=== PATIENT | female | born 1985 | race Caucasian/White ===

== ENCOUNTER 2021-06-13 06:25 | Inpatient (IN) | payer OTHER ==
[~2021-06-13] VITALS: Ht 165.1 cm; Wt 56.7 kg
--- NOTE | 2021-06-13 06:44 | NUR ---
AMY FROM A HALFWAY. TO ER BED 1. AAOX4. NOT IN RESP DISTRESS. BROUGHT IN FOR ABDOMINAL PAIN X 10 DAYS. 10/14 SHARP. ENDORESES VOMMITING WHENEVER SHE TRIES TO EAT OR DRINK. PT IS UNABLE TO KEEP FOOD DOWN. AWAITING MD FOR EVAL.
--- NOTE | 2021-06-13 06:49 | NUR ---
IV LINE ESTABLISHED, RAC 22G
[2021-06-13] MEDS ORDERED: ONDANSETRON HCL/PF 4 MG/2 ML VIAL ONE (06:58)
[2021-06-13] MEDS ORDERED: IV NS 0.9% 1,000 ML BAG IV ONE ×2 (07:00→09:30)
[2021-06-13] MEDS ORDERED: ONDANSETRON HCL/PF 4 MG/2 ML VIAL IVP ONE (07:00)
--- NOTE | 2021-06-13 07:29 | NUR ---
asked pt if she had taken any drugs recently prescription or other pt stated " i did heroin this morning."
--- NOTE | 2021-06-13 08:33 | NUR ---
CALLED LAB FOR DRAW.
--- NOTE | 2021-06-13 08:36 | NUR ---
MID LINE NURSE ETA 30 MINS PER NURSING SUP.
--- NOTE | 2021-06-13 08:46 | NUR ---
blood draw completed by lab, specimens in to analyze
[2021-06-13 08:58] LABS: BASOPHILS # (AUTO) 0.1 K/uL (0.0-0.2); BASOPHILS % (AUTO) 0.4 % (0.0-2.0); HEMATOCRIT 34 % (33-45); HEMOGLOBIN 8.4 g/dL (11.5-14.8); LYMPHOCYTES # (AUTO) 2.5 K/uL (0.8-4.8); MEAN CORPUSCULAR HGB CONC 25 g/dl (31.0-36.0); MEAN CORPUSCULAR VOLUME 49 fL (82-100); MONOCYTES # (AUTO) 2.1 K/uL (0.1-1.30); MONOCYTES % (AUTO) 6.7 % (2.0-12.0); NEUTROPHILS # (AUTO) 26.6 K/uL (1.8-8.9); NEUTROPHILS % (AUTO) 84.9 % (43.0-81.0); RED BLOOD CELL COUNT(AUTO) 6.92 MIL/uL (4.0-5.2)
--- NOTE | 2021-06-13 09:09 | NUR ---
LAB CALLED WHITE COUNT 31 PLATELET COUNT 1010 MD AWAD MADE AWARE.
[2021-06-13 09:10] LABS: PLATELET COUNT (AUTO) 1010 K/uL (150-450); WHITE BLOOD COUNT (AUTO) 31.3 K/uL (4.3-11.0)
[2021-06-13 09:12] LABS: ALBUMIN 3.5 g/dL (3.4-5.0); BILIRUBIN,DIRECT 0.4 mg/dL (0.0-0.2); CALCIUM, SERUM 9.1 mg/dL (8.5-10.1); CREATININE 7.3 mg/dL (0.6-1.3); TOTAL PROTEIN, SERUM 9.5 g/dL (6.4-8.2)
[2021-06-13 09:29] LABS: POTASSIUM 6.2 mmol/L (3.5-5.1)
--- NOTE | 2021-06-13 09:34 | NUR ---
PANKAJ [phone]
--- NOTE | 2021-06-13 09:38 | NUR ---
CALL [facility] DR. PEDRO [phone]
[2021-06-13] MEDS ORDERED: DIATR MEGLU/DIATRIZOATE SODIUM 30 ML BOTTLE (GASTROGRAPHIN) ONE (09:43)
--- NOTE | 2021-06-13 09:50 | NUR ---
CALLED NEPHORLOGY [phone] SADDLE [address] SIDE WIRE STITCHER IS DR. SHULTZ
[2021-06-13 09:53] LABS: ABG BASE EXCESS -13.2 mmol/L; ABG PCO2 25.5 mmHg (35.0-45.0); ABG PO2 92.1 mmHg (75.0-100.0); COHb 1.9 % (0.5-1.5); MetHb 0.3 % (0.0-1.5); O2Hb 93.7 % (94.0-97.0); SITE, ABG Right Radial; VENT MODE, BG ROOM AIR
--- NOTE | 2021-06-13 10:06 | NUR ---
LAB CALLED ABAD 3.2 NOTIFIED.
[2021-06-13 10:08] LABS: ACETAMINOPHEN < 0 ug/ml (10-30)
[2021-06-13] MEDS ORDERED: MORPHINE SULFATE INJ 2 MG/ML DISP.SYRIN IV PRN (10:30)
[2021-06-13] MEDS ORDERED: ACETAMINOPHEN 325 MG TABLET PO PRN (10:30)
[2021-06-13] MEDS ORDERED: MAG HYDROX/AL HYDROX/SIMETH 30 ML UDC PO PRN (10:30)
[2021-06-13] MEDS ORDERED: NOREPINEPHRINE 8 MG in IV NS 0.9% 242 ML IV PRN (10:30)
[2021-06-13] MEDS ORDERED: MAGNESIUM HYDROXIDE 30 ML UDC PO PRN (10:30)
[2021-06-13] MEDS ORDERED: Z GUARD REMEDY 4 OZ OINT TP PRN (10:30)
[2021-06-13] MEDS ORDERED: LORAZEPAM INJ 2 MG/ML VIAL IV PRN (10:30)
--- NOTE | 2021-06-13 10:58 | NUR ---
DR. HERNANDEZ SPEAKING WITH DR. AWAD.
[2021-06-13 11:11] LABS: BILIRUBIN,URINE SMALL (NEGATIVE); COLOR,URINE YELLOW (YELLOW); LEUKOCYTE ESTERASE ,URINE NEGATIVE (NEGATIVE); NITRITE, URINE NEGATIVE (NEGATIVE); PROTEIN,URINE 100 mg/dl (NEGATIVE); UGLUCOSE NEGATIVE (NEGATIVE); UROBILINOGEN,URINE 0.2 EU/dL (0.2)
[2021-06-13] MEDS: PANTOPRAZOLE 40 MG VIAL IV SCH (11:12)
[2021-06-13] MEDS: PIPERACILLIN /TAZOBACTAM 2.25 G in IV D5W 50 ML IV SCH ×3 (11:12→21:00)
[2021-06-13] MEDS: Sodium Bicarbonate 100 MEQ in IV 1/2NS 1000 ML 1,000 ML IV SCH ×2 (11:14→19:00)
[2021-06-13] MEDS ORDERED: SODIUM BICARBONATE SYR 50 MEQ/50 ML DISP.SYRIN ONE (11:18)
[2021-06-13] MEDS ORDERED: PIPERACILLIN /TAZOBACTAM 3.375 G VIAL IV ONE (11:18)
--- NOTE | 2021-06-13 11:19 | NUR ---
CALLED [facility] RHONDA [phone] AT [facility] WILL FAX OVER CLINICALS TO [phone]
--- NOTE | 2021-06-13 11:28 | NUR ---
THE ZOSYN AND THE BI- CARB ORDER WERE NOT GIVEN AT THIS TIME - AWAITING FOR THE VERIFIED APPROVAL, IT IS UNVERIFIED AT THIS TIME.
[2021-06-13 11:31] LABS: RBC,URINE 0-2 /HPF (0-2)
[2021-06-13 11:32] LABS: BACTERIA,URINE 3+ /HPF (None Seen)
--- NOTE | 2021-06-13 11:55 | NUR ---
PATIENT REFUSED NGT ORDERED X3. EXPLAINED RISK AND BENEFITS. PT VERBALIZED UNDERSTANDING STILL REFUSED. MD AWARE.
[2021-06-13 13:16] LABS: LYMPHOCYTES % (MANUAL) 4 % (16-48); MONOCYTES % (MANUAL) 6 % (0-11.0); NEUTROPHILS % (MANUAL) 90 (42-76)
[2021-06-13 14:17] LABS: CREATININE 4.9 mg/dL (0.6-1.3); POTASSIUM 4.8 mmol/L (3.5-5.1)
[2021-06-13 14:30] LABS: CALCIUM, SERUM 5.8 mg/dL (8.5-10.1)
[2021-06-13] MEDS ORDERED: VANCOMYCIN 1.25 GM in IV D5W 250 ML IV ONE (15:00)
--- NOTE | 2021-06-13 15:23 | NUR ---
CRITICAL LAB PROCALCITONIN = 23.03 , NEPROLOGIST SPECIALIST CAME TO SEE PT AND HELP TO EVALUATE PT FOR BEST PLAN
[2021-06-13] MEDS ORDERED: VANCOMYCIN 0.75 GM in IV D5W 250 ML IV SCH (15:30)
--- NOTE | 2021-06-13 16:06 | NUR ---
PT RECEIVED EVAL FROM NEUPROLOGIST, IV INTACT, F/C INTACT, REFUSED NG TUBE WILL ATTEMPT AGAIN, SLEEPING AT THIS TIME
--- NOTE | 2021-06-13 16:31 | NUR ---
ATIVAN GIVEN PER ORDER PRN 1630 PM
--- NOTE | 2021-06-13 16:58 | NUR ---
RECEIVED CALL FROM JAYDON OF [facility]. THEY STILL DONT HAVE BEDS AVAILABLE. SHE IS REQUESTING IF WE CAN MOVE PATIENT SOMEWHERE ELSE.
--- NOTE | 2021-06-13 20:30 | NUR ---
PATIENT REFUSED NGT ORDERED X2. EXPLAINED RISK AND BENEFITS. PT VERBALIZED UNDERSTANDING. MD NOTIFIED AND AWARE
--- NOTE | 2021-06-13 22:48 | NUR ---
ADMITTING FOLLOWING UP WITH [facility] DATA ENTRY REPRESENTATIVE FOR UPDATES REGARDING TRANSFER.
--- NOTE | 2021-06-13 23:20 | NUR ---
Spoke to case operator Marlen ([facility]), recommended [facility] - Transfer Center to be called in regards to refering patient to hospital for Bariatric Case for small bowel obstruction.
[2021-06-13 23:25] LABS: CREATININE 6.1 mg/dL (0.6-1.3)
[2021-06-13 23:36] LABS: POTASSIUM 6.3 mmol/L (3.5-5.1)
--- NOTE | 2021-06-13 23:36 | NUR ---
CALLED [facility] TO REQUEST A BED. MESSAGE LEFT WILL CALL BACK AGAIN
--- NOTE | 2021-06-13 23:36 | NUR ---
CRITICAL LABS SODIUM 120 POTASSIUM 6.3 BUN 120
[2021-06-14] MEDS ORDERED: PIPERACILLIN /TAZOBACTAM 3.375 G VIAL IV ONE (00:01)
[2021-06-14] MEDS ORDERED: Calcium Gluconate 0.465 MEQ/ML VIAL IV ONE (00:45)
--- NOTE | 2021-06-14 00:50 | NUR ---
PER MD MIKE JOSE BICARB IVF AND START NS 1 LITER.
[2021-06-14 00:59] LABS: ABG BASE EXCESS -9.6 mmol/L; ABG PCO2 23.2 mmHg (35.0-45.0); ABG PH 7.402 (7.350-7.450); ABG PO2 102.7 mmHg (75.0-100.0); COHb 2.2 % (0.5-1.5); MetHb 0.3 % (0.0-1.5); O2Hb 95.1 % (94.0-97.0); SITE, ABG Left Radial; VENT MODE, BG ROOM AIR
[2021-06-14] MEDS ORDERED: SODIUM POLYSTYRENE SULFONATE 15 G/60 ML BOTTLE PO ONE (01:00)
[2021-06-14] MEDS ORDERED: Calcium Gluconate 1GM/10ML 4.65 MEQ in IV D5W 50 ML IV ONE (01:00)
[2021-06-14] MEDS ORDERED: ALBUTEROL FS 2.5 MG/3 ML VIAL.NEB NEB ONE (01:00)
[2021-06-14] MEDS ORDERED: FUROSEMIDE 40 MG/4 ML VIAL IV ONE (01:00)
[2021-06-14] MEDS ORDERED: IV NS 0.9% 1,000 ML BAG IV ONE ×2 (01:00→04:30)
--- NOTE | 2021-06-14 01:02 | NUR ---
NS started per MD, lasix given. B/P stable.
[2021-06-14] MEDS ORDERED: FUROSEMIDE 40 MG/4 ML VIAL ONE (01:06)
[2021-06-14] MEDS ORDERED: SODIUM POLYSTYRENE SULFONATE 15 G/60 ML BOTTLE ONE ×2 (01:07→01:18)
[2021-06-14 01:20] LABS: MAGNESIUM 2.3 mg/dL (1.8-2.4)
--- NOTE | 2021-06-14 01:25 | NUR ---
[facility] TALKING TO DR. WHEELER OVER THE PHONE
--- NOTE | 2021-06-14 01:30 | NUR ---
SPOKE WITH MOHINDER CHOE [facility] TRANSFER [facility] AND OPEN A CASE FOR A HIGHER LEVEL OF CARE FOR A SMALL BOWEL OBTRUCTION REQUIRING SURGERY. WILL CALL BACK ONCE CLINICALS ARE REVIEWED
--- NOTE | 2021-06-14 01:30 | NUR ---
DEBBIE, ELECTRIC SPOT WELDER SHARED INFORMATION THAT THE PATIENT'S BARIATRIC PROCEDURE WAS DONE AT [facility] IN [place] BY DR. ANDRADE
[2021-06-14] MEDS ORDERED: ALBUTEROL FS 2.5 MG/3 ML VIAL.NEB ONE (01:38)
--- NOTE | 2021-06-14 01:40 | NUR ---
RT paged for breathing treatment.
--- NOTE | 2021-06-14 01:50 | NUR ---
CLINICALS FAXED TO [facility]
--- NOTE | 2021-06-14 01:52 | NUR ---
ELIZONDO CATH 650ML
--- NOTE | 2021-06-14 01:58 | NUR ---
Labs collected and sent
[2021-06-14 02:00] LABS: BASOPHILS % (AUTO) 0.1 % (0.0-2.0); HEMATOCRIT 23 % (33-45); LYMPHOCYTES # (AUTO) 1.1 K/uL (0.8-4.8); MEAN CORPUSCULAR HGB CONC 26 g/dl (31.0-36.0); MEAN CORPUSCULAR VOLUME 47 fL (82-100); MONOCYTES # (AUTO) 1.5 K/uL (0.1-1.30); MONOCYTES % (AUTO) 8.2 % (2.0-12.0); NEUTROPHILS # (AUTO) 15.3 K/uL (1.8-8.9); NEUTROPHILS % (AUTO) 85.7 % (43.0-81.0); PLATELET COUNT (AUTO) 621 K/uL (150-450); RED BLOOD CELL COUNT(AUTO) 4.87 MIL/uL (4.0-5.2); WHITE BLOOD COUNT (AUTO) 17.9 K/uL (4.3-11.0)
[2021-06-14 02:16] LABS: ALBUMIN 2.5 g/dL (3.4-5.0); BILIRUBIN,DIRECT 0.4 mg/dL (0.0-0.2); CALCIUM, SERUM 7.8 mg/dL (8.5-10.1); CREATININE 5.6 mg/dL (0.6-1.3); POTASSIUM 5.5 mmol/L (3.5-5.1)
[2021-06-14 02:28] LABS: HEMOGLOBIN 5.9 g/dL (11.5-14.8)
--- NOTE | 2021-06-14 02:29 | NUR ---
HEMOGLOBIN 5.9
--- NOTE | 2021-06-14 02:46 | NUR ---
urine collected and sent.
[2021-06-14] MEDS: Sodium Bicarbonate 100 MEQ in IV 1/2NS 1000 ML 1,000 ML IV SCH (03:00)
[2021-06-14] MEDS: PIPERACILLIN /TAZOBACTAM 2.25 G in IV D5W 50 ML IV SCH ×5 (05:00→17:00)
--- NOTE | 2021-06-14 05:00 | NUR ---
BLODD TRANSFUSION STARTED V/S STABLE
[2021-06-14 05:10] LABS: BASOPHILS % (AUTO) 0.3 % (0.0-2.0); HEMATOCRIT 24 % (33-45); LYMPHOCYTES # (AUTO) 2.5 K/uL (0.8-4.8); LYMPHOCYTES % (AUTO) 13.6 % (20.0-44.0); MEAN CORPUSCULAR HGB CONC 25 g/dl (31.0-36.0); MEAN CORPUSCULAR VOLUME 47 fL (82-100); MONOCYTES # (AUTO) 1.4 K/uL (0.1-1.30); MONOCYTES % (AUTO) 7.6 % (2.0-12.0); NEUTROPHILS # (AUTO) 14.3 K/uL (1.8-8.9); NEUTROPHILS % (AUTO) 78.5 % (43.0-81.0); PLATELET COUNT (AUTO) 600 K/uL (150-450); RED BLOOD CELL COUNT(AUTO) 5.05 MIL/uL (4.0-5.2); WHITE BLOOD COUNT (AUTO) 18.2 K/uL (4.3-11.0)
--- NOTE | 2021-06-14 05:10 | NUR ---
0500 zosyn not administered pt will start Blood transfusion
--- NOTE | 2021-06-14 05:20 | NUR ---
FOLLOWED UP WITH [facility] REGARDING TRANSFER. NO ANSWER, MESSAGE LEFT.
--- NOTE | 2021-06-14 05:23 | NUR ---
FOLLOWED UP WITH [facility] REGARDING TRANSFER. PT'S CASE IS STILL UNDER REVIEW. WILL CALL BACK IF CASE IS ACCEPTED.
[2021-06-14] MEDS ORDERED: ONDANSETRON HCL/PF 4 MG/2 ML VIAL ONE ×2 (05:24→14:41)
[2021-06-14 05:28] LABS: CALCIUM, SERUM 8.2 mg/dL (8.5-10.1); CREATININE 4.9 mg/dL (0.6-1.3); MAGNESIUM 2.1 mg/dL (1.8-2.4); PHOSPHORUS 7.7 mg/dL (2.5-4.9); POTASSIUM 4.6 mmol/L (3.5-5.1)
--- NOTE | 2021-06-14 05:40 | NUR ---
PT VOMITED 100 ML OF CLEAR EMESIS MD AWARE ZOFRAN GIVEN
[2021-06-14 05:48] LABS: THYROID STIMULATING HORMONE 0.889 uIU/mL (0.358-3.74)
--- NOTE | 2021-06-14 05:50 | NUR ---
SPOKE WITH CARMELLA FROM [facility] TRANSFER. CURRENTLY NO BED. CASE IS NOT DECLINED, JUSTR AWAITING BED AVAILABILITY IN AM.
--- NOTE | 2021-06-14 06:00 | NUR ---
CALLED TO FOLLOW UP WITH [employer] [facility]. SPOKE WITH MARLON COORDINATOR AND WILL PAGED [employer] TO CALL BACK
[2021-06-14] MEDS ORDERED: MORPHINE SULFATE INJ 2 MG/ML DISP.SYRIN ONE ×4 (06:12→20:22)
--- NOTE | 2021-06-14 06:25 | NUR ---
Blood transusion completed, no adverse reaction v/s stable
--- NOTE | 2021-06-14 06:33 | NUR ---
DAIJA FROM [facility] CALLED BACK TO INFORM THAT THE PATIENT IS NOT ACCEPTED, DECLINED THE CASE
--- NOTE | 2021-06-14 06:34 | NUR ---
SPOKE WITH JAMES FROM TRANSFER CENTER, CASE IS STILL IN REVIEW. WILL CALL BACK IF PATIENT IS ACCEPTED.
--- NOTE | 2021-06-14 06:40 | NUR ---
NGT INSERTED TO LEFT NARE PT TOLERATED WELL. ON INTERMITTENT LOW SUCTION.
[2021-06-14] MEDS: MORPHINE SULFATE INJ 2 MG/ML DISP.SYRIN IV PRN ×4 (06:41→20:29)
[2021-06-14] MEDS: ONDANSETRON HCL/PF 4 MG/2 ML VIAL IVP PRN (06:43)
[2021-06-14 07:23] LABS: LYMPHOCYTES % (MANUAL) 3 % (16-48); MONOCYTES % (MANUAL) 4 % (0-11.0); NEUTROPHILS % (MANUAL) 93 (42-76)
--- NOTE | 2021-06-14 07:43 | NUR ---
REPORT GIVEN TO ANTONIO COPPOLA FOR KALE
[2021-06-14] MEDS: IV D5/0.45 NACL 1,000 ML IV PRN ×2 (08:10→22:04)
[2021-06-14] MEDS ORDERED: IV 1/2NS 1000 ML 1,000 ML IV ONE (08:30)
[2021-06-14] MEDS: PANTOPRAZOLE 40 MG VIAL IV SCH (09:00)
--- NOTE | 2021-06-14 10:15 | NUR ---
NG TUBE IN PLACED CONNECTED TO LOW INTERMITTENT SUCTION
[2021-06-14] MEDS ORDERED: CLONIDINE HCL 0.3 MG/24H PTWK 1 EA PATCH TD SCH (11:00)
--- NOTE | 2021-06-14 12:38 | NUR ---
PT IS ACEPTED AT [facility] PER VALERIA PEREZ. HOWEVER, STILL AWAITING FOR BED FROM HOSPITAL DISCHARGE. WILL CALL BACK ONCE BED IS AVAILABLE. AND ALSO CALL [phone] TO FOLLOW UP BED STATUS
[2021-06-14 13:05] LABS: CALCIUM, SERUM 8.5 mg/dL (8.5-10.1); CREATININE 4.3 mg/dL (0.6-1.3); POTASSIUM 4.4 mmol/L (3.5-5.1)
--- NOTE | 2021-06-14 17:30 | NUR ---
CALLED [facility] AT [phone]. PER ALYSSA, ICU IS STILL SATURATED AND NO UPDATE YET RE: BED AVAILABILITY.
--- NOTE | 2021-06-14 17:45 | NUR ---
NG TUBE INSERTED, POSITIVE GASTRIC RESIDUAL RETURN
--- NOTE | 2021-06-14 18:00 | NUR ---
DIRECTOR OF SOCIAL WORK AT BEDSIDE FOR POST NG TUBE INSERTION
[2021-06-14 19:18] LABS: CALCIUM, SERUM 8.1 mg/dL (8.5-10.1); CREATININE 3.3 mg/dL (0.6-1.3)
--- NOTE | 2021-06-14 19:19 | NUR ---
LAB CALLED BUN [address] AWAD INFORMED.
[2021-06-14 19:56] LABS: BASOPHILS % (AUTO) 0.1 % (0.0-2.0); EOSINOPHILS % (AUTO) 0.1 % (0.0-6.0); HEMATOCRIT 32 % (33-45); HEMOGLOBIN 8.8 g/dL (11.5-14.8); LYMPHOCYTES # (AUTO) 0.5 K/uL (0.8-4.8); LYMPHOCYTES % (AUTO) 2.5 % (20.0-44.0); MEAN CORPUSCULAR HGB CONC 28 g/dl (31.0-36.0); MEAN CORPUSCULAR VOLUME 55 fL (82-100); MONOCYTES # (AUTO) 1.6 K/uL (0.1-1.30); MONOCYTES % (AUTO) 8.5 % (2.0-12.0); NEUTROPHILS # (AUTO) 16.6 K/uL (1.8-8.9); NEUTROPHILS % (AUTO) 88.8 % (43.0-81.0); PLATELET COUNT (AUTO) 627 K/uL (150-450); RED BLOOD CELL COUNT(AUTO) 5.75 MIL/uL (4.0-5.2); WHITE BLOOD COUNT (AUTO) 18.8 K/uL (4.3-11.0)
--- NOTE | 2021-06-14 20:15 | NUR ---
PT IS RESTING CONFORTABLY IN BED BUT STATES SHE HAS GENERALIZED BODY PAIN 10/10 ON P/S. WILL PROVIDE PRN PAIN MEDS AND MAKE MD AWARE. WILL CONTINUE TO MONITOR
--- NOTE | 2021-06-14 20:15 | NUR ---
RECEIVED REPORT FROM COMPANY MINER BLASTING FOR KALE
[2021-06-14 20:32] LABS: LYMPHOCYTES % (MANUAL) 4 % (16-48); MONOCYTES % (MANUAL) 10 % (0-11.0); NEUTROPHILS % (MANUAL) 86 (42-76)
[2021-06-14] MEDS ORDERED: IV NS 0.9% 1,000 ML IV ONE (22:30)
--- NOTE | 2021-06-15 02:35 | NUR ---
PT IS NOW AWAKE AND STATES SHE HAS GENERALIZED BODY PAIN 10/10 ON P/S, WILL PROVIDE PRN PAIN MEDS AND MAKE MD AWARE.
[2021-06-15] MEDS: MORPHINE SULFATE INJ 2 MG/ML DISP.SYRIN IV PRN ×5 (02:38→16:35)
[2021-06-15] MEDS ORDERED: MORPHINE SULFATE INJ 2 MG/ML DISP.SYRIN ONE ×4 (02:39→15:09)
[2021-06-15] MEDS ORDERED: VANCOMYCIN 0.75 GM in IV D5W 250 ML IV SCH ×2 (03:00→04:00)
[2021-06-15 05:14] LABS: BASOPHILS # (AUTO) 0.1 K/uL (0.0-0.2); BASOPHILS % (AUTO) 0.7 % (0.0-2.0); EOSINOPHILS % (AUTO) 0.1 % (0.0-6.0); HEMATOCRIT 31 % (33-45); HEMOGLOBIN 8.7 g/dL (11.5-14.8); LYMPHOCYTES # (AUTO) 0.8 K/uL (0.8-4.8); LYMPHOCYTES % (AUTO) 4.7 % (20.0-44.0); MEAN CORPUSCULAR HGB CONC 28 g/dl (31.0-36.0); MEAN CORPUSCULAR VOLUME 55 fL (82-100); MONOCYTES # (AUTO) 1.3 K/uL (0.1-1.30); MONOCYTES % (AUTO) 7.4 % (2.0-12.0); NEUTROPHILS # (AUTO) 15.4 K/uL (1.8-8.9); NEUTROPHILS % (AUTO) 87.1 % (43.0-81.0); PLATELET COUNT (AUTO) 630 K/uL (150-450); RED BLOOD CELL COUNT(AUTO) 5.58 MIL/uL (4.0-5.2); WHITE BLOOD COUNT (AUTO) 17.6 K/uL (4.3-11.0)
[2021-06-15 05:32] LABS: CALCIUM, SERUM 8.3 mg/dL (8.5-10.1); CREATININE 2.2 mg/dL (0.6-1.3); POTASSIUM 3.8 mmol/L (3.5-5.1)
--- NOTE | 2021-06-15 05:36 | NUR ---
BUN 84
[2021-06-15] MEDS ORDERED: LORAZEPAM INJ 2 MG/ML VIAL ONE ×3 (05:47→15:16)
[2021-06-15] MEDS: LORAZEPAM INJ 2 MG/ML VIAL IV PRN ×3 (05:52→15:19)
[2021-06-15] MEDS: PIPERACILLIN /TAZOBACTAM 2.25 G in IV D5W 50 ML IV SCH ×5 (06:50→18:08)
--- NOTE | 2021-06-15 07:13 | NUR ---
Recived pt from Kalyn COPPOLA pt asleepy respiration spont on room air with NGT conected to low suction drainning clear pickish color abdomin soft none tender to touch
--- NOTE | 2021-06-15 07:24 | NUR ---
PATIENT WAS SEEN AND EVALUATED BY HOSPITALIST, SONIA ATKINSON AND DOWN GRADED TO MED SURG. CALLED PATRICIA AT [facility] AND MADE HER AWARE OF THE PATIENT STATUS. PLEASE CALL PATIENT PLACEMENT AT [phone] #2, #2 AND FOLLOW UP WITH SATHYA AFTER 10AM.
[2021-06-15] MEDS ORDERED: ONDANSETRON HCL/PF 4 MG/2 ML VIAL ONE ×2 (07:58→15:22)
[2021-06-15] MEDS: ONDANSETRON HCL/PF 4 MG/2 ML VIAL IVP PRN ×3 (08:01→15:26)
--- NOTE | 2021-06-15 08:22 | NUR ---
Restless on and off no c/o pain morphine given f/c out put 3000ml dark yellow color
[2021-06-15] MEDS ORDERED: PANTOPRAZOLE 40 MG VIAL ONE (09:01)
[2021-06-15] MEDS: PANTOPRAZOLE 40 MG VIAL IV SCH (09:06)
--- NOTE | 2021-06-15 09:28 | NUR ---
wating for room resting at this time no sob or distress
--- NOTE | 2021-06-15 10:36 | NUR ---
Asleepy no abdominale pain or n/v
--- NOTE | 2021-06-15 11:37 | NUR ---
STARTED abdomine saires
[2021-06-15] MEDS ORDERED: DIATR MEGLU/DIATRIZOATE SODIUM 120 ML BOTTLE (GASTROGRAPHIN) ONE (12:12)
--- NOTE | 2021-06-15 12:31 | NUR ---
resting and comfortable at this time
[2021-06-15] MEDS ORDERED: BARIUM SULFATE 98% 135 ML SUSP.RECON PO ONE (12:59)
--- NOTE | 2021-06-15 13:20 | NUR ---
contenue montring sleepy resless on and off keep pt comfortable all time
--- NOTE | 2021-06-15 14:11 | NUR ---
RADIOLOGY AT BEDSIDE
--- NOTE | 2021-06-15 14:28 | NUR ---
still on process abdomina saires abdomin soft jairon tender to touch
--- NOTE | 2021-06-15 15:25 | NUR ---
pt refused to contenue abdomina saires to be done avivan 1 mg ivp given pt pt responded to mediction and asleepy
--- NOTE | 2021-06-15 16:27 | NUR ---
asleepy no distress ngt intact clamped condition stable no change improving wating for room
--- NOTE | 2021-06-15 18:42 | NUR ---
ngt clamped still in porocess abdomina sarice no abdomiale pain no n/v ivf infused and patent vs stable wating for room
--- NOTE | 2021-06-15 19:28 | NUR ---
URINE OUTPUT 700ML HAND OFF TO WENCESLAO RN AT bed side
--- NOTE | 2021-06-15 19:38 | NUR ---
PT IS RESTING COMFORTABLY IN BED, SLEEPING BUT EASILY AROUSABLE. PER DAY SHIFT , KEEP NG TUBE OFF FROM SUCTION UNTIL XRAYS ARE COMPLETE. WILL CONTINUE TO MONITOR
--- NOTE | 2021-06-15 19:38 | NUR ---
RECEIVED REPORT FROM ANGELA COPPOLA FOR [facility]ALE
--- NOTE | 2021-06-15 23:23 | NUR ---
PT PULLED OUT NG TUBE, STATES "SHES DONE WITH ALL OF THIS". MADE AWARE
--- NOTE | 2021-06-16 00:01 | NUR ---
PT REFUSED REINSERTION OF NG TUBE, MADE AWARE
[2021-06-16] MEDS: PIPERACILLIN /TAZOBACTAM 2.25 G in IV D5W 50 ML IV SCH ×3 (01:00→12:59)
[2021-06-16] MEDS ORDERED: MORPHINE SULFATE INJ 2 MG/ML DISP.SYRIN ONE ×3 (04:40→13:11)
[2021-06-16] MEDS: MORPHINE SULFATE INJ 2 MG/ML DISP.SYRIN IV PRN (04:42)
--- NOTE | 2021-06-16 04:43 | NUR ---
PT C/O GEN BODY PAIN. ADMINISTERED MORPHINE 2MG IVP ORDERED. WILL REASSES
[2021-06-16 05:09] LABS: BASOPHILS # (AUTO) 0.1 K/uL (0.0-0.2); BASOPHILS % (AUTO) 0.4 % (0.0-2.0); HEMATOCRIT 29 % (33-45); HEMOGLOBIN 8.1 g/dL (11.5-14.8); LYMPHOCYTES # (AUTO) 0.6 K/uL (0.8-4.8); LYMPHOCYTES % (AUTO) 4.8 % (20.0-44.0); MEAN CORPUSCULAR HGB CONC 28 g/dl (31.0-36.0); MEAN CORPUSCULAR VOLUME 56 fL (82-100); MONOCYTES # (AUTO) 1.1 K/uL (0.1-1.30); NEUTROPHILS # (AUTO) 10.8 K/uL (1.8-8.9); NEUTROPHILS % (AUTO) 85.8 % (43.0-81.0); PLATELET COUNT (AUTO) 604 K/uL (150-450); RED BLOOD CELL COUNT(AUTO) 5.15 MIL/uL (4.0-5.2); WHITE BLOOD COUNT (AUTO) 12.6 K/uL (4.3-11.0)
[2021-06-16 05:23] LABS: CALCIUM, SERUM 8.1 mg/dL (8.5-10.1); CREATININE 1.2 mg/dL (0.6-1.3); POTASSIUM 3.2 mmol/L (3.5-5.1)
[2021-06-16] MEDS ORDERED: [UNRECOGNIZED DRUG - OTHER] IV ONE ×2 (07:00)
[2021-06-16] MEDS ORDERED: POTASSIUM CHLORIDE IV ONE ×2 (07:00)
[2021-06-16] MEDS ORDERED: DEXTROSE IV ONE ×2 (07:00)
[2021-06-16] MEDS ORDERED: NORMAL SALINE FLUSH 10 ML SYR ONE (07:58)
[2021-06-16] MEDS ORDERED: PANTOPRAZOLE 40 MG VIAL ONE (07:58)
[2021-06-16] MEDS ORDERED: MORPHINE SULFATE INJ 2 MG/ML DISP.SYRIN IV PRN (08:00)
[2021-06-16] MEDS: PANTOPRAZOLE 40 MG VIAL IV SCH (08:20)
[2021-06-16] MEDS ORDERED: ONDANSETRON HCL/PF 4 MG/2 ML VIAL ONE (08:49)
[2021-06-16] MEDS: ONDANSETRON HCL/PF 4 MG/2 ML VIAL IVP PRN (08:51)
[2021-06-16] MEDS ORDERED: POTASSIUM CL. PREMIX PERIPHER. 100 ML ONE (09:00)
[2021-06-16] MEDS: POTASSIUM CL. PREMIX PERIPHER. 50 ML IV SCH ×4 (09:12→13:30)
[2021-06-16] MEDS ORDERED: POTASSIUM CL. PREMIX PERIPHER. 50 ML ONE (11:00)
--- NOTE | 2021-06-16 14:44 | NUR ---
1300 CC EMPTIED FROM PT ELIZONDO CATHETER.
--- NOTE | 2021-06-16 15:13 | NUR ---
FOLLOWED UP WITH [facility] BED CONTROL [phone], STILL NO BED AVAILABILITY.
--- NOTE | 2021-06-16 18:11 | NUR ---
PT STATED THAT SHE WANTED TO LEAVE BECAUSE SHE WANTS WATER, PT WAS EXPLAINED THE RISKS OF LEAVING, PT SIGNED AGAINST MEDICAL ADVICE PAPERS.
--- NOTE | 2021-06-16 21:35 | NUR ---
Patient does not wish to proceed with medical care recommended by Dr. ROJAS. Patient given information related to possible complications, up to and including , which could occur as a result of leaving the hospital at this time. Patient verbalizes understanding of risks involved due to leaving against medical advice. Patient has signed AMA form. PT ambulatory with a steady gait. IV & FC removed. Catheter intact and site benign. Pressure and 4x4 applied to site. No bleeding noted.
[2021-06-17 00:08] VITALS: BP 116/55
[2021-06-17] MEDS ORDERED: ONDANSETRON HCL/PF 4 MG/2 ML VIAL ONE (01:59)
[2021-06-17] MEDS ORDERED: MORPHINE SULFATE INJ 2 MG/ML DISP.SYRIN ONE (01:59)
== END 2021-06-16 21:35 | disposition left against medical advice (07) | DRG 720 ==
LOC: ER 06:30 → ICU 06-14 00:51 → TRANSITION 06-14 05:23
PROVIDERS: ADMIT Nurse Practitioner Acute Care; ATTEND Student in an Organized Health Care Education/Training Program
PROC: 30233N1 Transfusion of Nonautologous Red Blood Cells into Peripheral Vein, Percutaneous Approach (ICD-10-PCS; principal; 2021-06-14)
PROC: 05H933Z Insertion of Infusion Device into Right Brachial Vein, Percutaneous Approach (ICD-10-PCS; 2021-06-14)
DX: A41.9 Sepsis, unspecified organism (principal); N17.0 Acute kidney failure with tubular necrosis; R65.21 Severe sepsis with septic shock; E43 Unspecified severe protein-calorie malnutrition; K56.609 Unspecified intestinal obstruction, unspecified as to partial versus complete obstruction; K55.9 Vascular disorder of intestine, unspecified; E87.2 Acidosis; R64 Cachexia; E87.1 Hypo-osmolality and hyponatremia; Z68.20 Body mass index [BMI] 20.0-20.9, adult; Z20.822 Contact with and (suspected) exposure to COVID-19; Z59.00 Homelessness unspecified; Z98.84 Bariatric surgery status; J98.11 Atelectasis; K31.9 Disease of stomach and duodenum, unspecified; F11.20 Opioid dependence, uncomplicated; D75.839 Thrombocytosis, unspecified; D64.9 Anemia, unspecified; I70.0 Atherosclerosis of aorta; E87.5 Hyperkalemia; E87.6 Hypokalemia
CPT/HCPCS: 36410; 36415; 36600; 71045-TC; 74018; 74250-TC; 76770-TC; 80048-TC; 80076-TC; 80202-TC; 81001; 82010-TC; 82803-TC; 83605-TC; 83690-TC; 83735-TC; 84100-TC; 84300-TC; 84443-TC; 84702-TC; 85025-TC; 86403-TC; 86803; 86850-TC; 87040-TC; 87070-TC; 87081-TC; 87086-TC; 87806; 93307-TC; A4216; C9113; C9803; G0378; J0610; J1940; J2060; J2270; J2405; J2543; J3370; J3480; J3490; J7030; J7040; J7050; J7060; P9016; Q9963

== ENCOUNTER 2021-06-17 00:02 | Inpatient (IN) | payer MEDICAID, OTHER ==
[~2021-06-17] VITALS: Ht 165.1 cm; Wt 56.7 kg
--- NOTE | 2021-06-17 00:35 | NUR ---
BIBRA 39 FROM [facility] C/O ABDOMINAL PAIN 12/14. PT AO X 3. DENIES SOB, ON RA, TOLERATING, VS TAKEN.
--- NOTE | 2021-06-17 00:54 | NUR ---
COMPOSITE TECHNICIAN AT BEDSIDE
--- NOTE | 2021-06-17 00:54 | NUR ---
PT UNABLE TO URINATE YET.
--- NOTE | 2021-06-17 01:30 | NUR ---
FOLLOWED UP WITH [facility] ABOUT BED AVAILABILITY. STILL AT [facility].
[2021-06-17 01:44] LABS: BASOPHILS # (AUTO) 0.1 K/uL (0.0-0.2); BASOPHILS % (AUTO) 0.4 % (0.0-2.0); EOSINOPHILS % (AUTO) 0.4 % (0.0-6.0); HEMATOCRIT 32 % (33-45); HEMOGLOBIN 8.9 g/dL (11.5-14.8); LYMPHOCYTES # (AUTO) 1.6 K/uL (0.8-4.8); LYMPHOCYTES % (AUTO) 12.3 % (20.0-44.0); MEAN CORPUSCULAR HGB CONC 28 g/dl (31.0-36.0); MEAN CORPUSCULAR VOLUME 57 fL (82-100); MONOCYTES # (AUTO) 0.8 K/uL (0.1-1.30); MONOCYTES % (AUTO) 6.1 % (2.0-12.0); NEUTROPHILS # (AUTO) 10.3 K/uL (1.8-8.9); NEUTROPHILS % (AUTO) 80.8 % (43.0-81.0); PLATELET COUNT (AUTO) 596 K/uL (150-450); WHITE BLOOD COUNT (AUTO) 12.8 K/uL (4.3-11.0)
[2021-06-17 01:58] LABS: CALCIUM, SERUM 8.3 mg/dL (8.5-10.1); CREATININE 0.9 mg/dL (0.6-1.3); POTASSIUM 3.5 mmol/L (3.5-5.1)
[2021-06-17] MEDS ORDERED: IV LR 1000 ML 1,000 ML IV ONE (02:00)
[2021-06-17] MEDS ORDERED: MORPHINE SULFATE INJ 2 MG/ML DISP.SYRIN IV ONE (02:00)
[2021-06-17] MEDS ORDERED: ONDANSETRON HCL/PF - ER 4 MG/2 ML VIAL IV ONE (02:00)
[2021-06-17 02:03] LABS: ALBUMIN 2.1 g/dL (3.4-5.0); BILIRUBIN,DIRECT 0.4 mg/dL (0.0-0.2); BILIRUBIN,TOTAL 1.3 mg/dL (0.2-1.0); TOTAL PROTEIN, SERUM 7.1 g/dL (6.4-8.2)
[2021-06-17 02:39] LABS: EOSINOPHILS % (MANUAL) 1 % (0-4); LYMPHOCYTES % (MANUAL) 4 % (16-48); MONOCYTES % (MANUAL) 7 % (0-11.0); NEUTROPHILS % (MANUAL) 88 (42-76)
--- NOTE | 2021-06-17 02:46 | NUR ---
COVID SWAB DONE, UA COLLECTED SENT TO LAB
[2021-06-17 02:57] LABS: BILIRUBIN,URINE NEGATIVE (NEGATIVE); COLOR,URINE DARK YELLOW (YELLOW); LEUKOCYTE ESTERASE ,URINE NEGATIVE (NEGATIVE); NITRITE, URINE NEGATIVE (NEGATIVE); PROTEIN,URINE 100 mg/dl (NEGATIVE); UGLUCOSE NEGATIVE (NEGATIVE); UROBILINOGEN,URINE 0.2 EU/dL (0.2)
[2021-06-17 03:09] LABS: BACTERIA,URINE Moderate /HPF (None Seen); RBC,URINE 21-50 /HPF (0-2); SQUAMOUS EPITHELIAL CELL,UR Few /HPF (None Seen)
[2021-06-17 03:10] LABS: URIC ACID CRYSTALS,URINE Moderate /HPF (None Seen); URINE AMORPHOUS URATE Few /HPF (None Seen)
--- NOTE | 2021-06-17 04:00 | NUR ---
pt sleeping comfortably. no signs of pain. vs stable
--- NOTE | 2021-06-17 07:26 | NUR ---
[facility] paged - via exchange
--- NOTE | 2021-06-17 08:12 | NUR ---
accepted by Graeme Norman MD - for ER OBS called rn case manager for HLOC
--- NOTE | 2021-06-17 08:16 | NUR ---
called case management - Zac COPPOLA is aware for HLOCT per Graeme Norman MD
[2021-06-17] MEDS ORDERED: ONDANSETRON HCL/PF 4 MG/2 ML VIAL IVP PRN (09:30)
[2021-06-17] MEDS ORDERED: Z GUARD REMEDY 4 OZ OINT TP PRN (09:30)
[2021-06-17] MEDS ORDERED: ACETAMINOPHEN 325 MG TABLET PO PRN (09:30)
[2021-06-17] MEDS ORDERED: MAG HYDROX/AL HYDROX/SIMETH 30 ML UDC PO PRN (09:30)
[2021-06-17] MEDS ORDERED: MAGNESIUM HYDROXIDE 30 ML UDC PO PRN (09:30)
[2021-06-17] MEDS ORDERED: ZOLPIDEM TARTRATE 5 MG TABLET PO PRN (09:30)
--- NOTE | 2021-06-17 09:52 | NUR ---
WAITING ADMIT OFFICE TO PLACE THE PATIENT IN TRANSITION. FOLLOW UP CALL TO ADMIT OFFICE IS DONE.
[2021-06-17] MEDS: IV NS 0.9% 1,000 ML IV SCH ×2 (10:45→19:42)
[2021-06-17] MEDS ORDERED: MORPHINE SULFATE INJ 2 MG/ML DISP.SYRIN ONE ×2 (11:17→15:29)
[2021-06-17] MEDS ORDERED: ONDANSETRON HCL/PF 4 MG/2 ML VIAL ONE (11:17)
[2021-06-17] MEDS: MORPHINE SULFATE INJ 2 MG/ML DISP.SYRIN IV PRN ×4 (11:24→23:41)
[2021-06-17] MEDS ORDERED: MORPHINE SULFATE INJ 2 MG/ML DISP.SYRIN IV SCH (13:00)
--- NOTE | 2021-06-17 15:31 | NUR ---
ROOM 320-1
--- NOTE | 2021-06-17 15:46 | NUR ---
REPORT GIVEN TO PRIYANK FOR KALE
--- NOTE | 2021-06-17 16:13 | NUR ---
PT TRANSPORT TO [facility] SURG FLOOR IN STABLE CONDITION.
--- NOTE | 2021-06-17 16:15 | NUR ---
Patient arrived via gurney around 1615pm from ER department. Patient AO X 4, able to make needs known, can follow simple commands, no apparent distress noted, breathing even and unlabored. Admitting hospitalist made aware of the patient's arrival. Patient admitting diagnosis small bowel obstruction. Patient has a nasogastric tube in her right nare connected to low intermittent suction draining yellowish output. Patient on NPO diet order, and kept on asking for apple juice, explained to patient that she cannot drink or anything for now, patient insisted and kept screaming for apple juice. Patient's vital signs within normal limits. Skin intact, warm to touch, no pallor or cyanosis noted, refused to have further skin assessment, patient noted to have scabs and open areas on her forearm and refused to have photos taken. "Go away, leave my skin alone, do not touch me", patient stated. Patient oriented with use of call lights, use of bed control, use of telephone and tv control, also introduces PAPER CARRIER and RN assigned for today, patient did not respond. All belongings written in the inventory list. All needs anticipated, kept clean and dry, call light left within reach, safety precautions in place, brakes locked, side rails up X 2, will monitor closely for any changes.
[2021-06-17 17:00] VITALS: BP 137/94
--- NOTE | 2021-06-17 19:30 | NUR ---
MS RN OPENING NOTES RECEIVED PATIENT LYING IN BED AWAKE. A/O X3. ASKING FOR APPLE JUICE, CURRENTLY ON NPO. BREATHING EVEN AND UNLABORED. S/S OF HEROIN WITHDRAWAL NOTED. HAS RIGHT AC IV ACCESS WITH NS RUNNING AT 75 ML/HR. PATENT AND INTACT. HAS RIGHT NARE NG TUBE CONNECTED TO LOW INTERMITTENT SUCTION WITH BROWNISH SECRETION NOTED. SAFETY PRECAUTIONS IN PLACED. WILL CONTINUE PLAN OF CARE.
--- NOTE | 2021-06-17 19:40 | NUR ---
RN CLOSING NOTES Patient lying in bed, no shortness of breath, respirations even and unlabored, no apparent distress noted, no dizziness, no palpitations, no chest pain, no nausea, no vomiting. Pain medication given when non pharmacological measures ineffective. Patient also kept on asking for apple juice, patient currently on NPO diet order, health education provided and refused to listen to nurse. Patient has a nasogastric tube in her right nare connected to low intermittent suction draining yellowish output. All due medications given per MD order, tolerating well. Patient has an order for IV fluids (0.9NS at 100ml/hr) IV site on her right antecubital, patent, flushing well, intact, no swelling, no redness, no c/o pain or discomfort at site. All needs anticipated, kept clean and dry, call light left within reach, safety precautions in place, frequent visual check rendered, brakes locked, side rails up X 2, will endorse to next shift for continuity of care.
[2021-06-17 20:00] VITALS: BP 132/92
--- NOTE | 2021-06-17 20:00 | NUR ---
MS RN NOTES PATIENT PULLED OUT HER NG TUBE AND DRANK THE JUICE FROM ANOTHER PATIENT'S TABLE. SHE CLAIMS THAT IT CAME OUT ON ITS OWN. OFFERED TO RE-INSERT NG TUBE BUT PATIENT KEEPS SCREAMING AND AGITATED. EXPLAINED RISKS AND BENEFITS BUT STILL REFUSED. SHE IS ASKING FOR HER MORPHINE WHICH IS NOT DUE YET.
[2021-06-17] MEDS ORDERED: OLANZAPINE 10 MG VIAL IM ONE ×2 (21:30→21:57)
--- NOTE | 2021-06-17 21:30 | NUR ---
MS RN NOTES PATIENT CONTINUES TO SCREAM ASKING FOR APPLE JUICE, [place] AND WANTS TO SPEAK WITH THE DR. INSTRUCTED TO STOP SCREAMING SINCE OTHER PATIENTS ARE RESTING. ADVISED THAT DR DOESN'T COME AT NIGHT BUT I WILL ENDORSE IT TO AM RN TO MAKE SURE SHE CAN SPEAK WITH THE DR. TEXTED DR. KISER WITH NEW ORDER FOR PSYCH CONSULT AND ZYPREXA 5 MG IM. PATIENT IS REFUSING AT FIRST BUT AGREED FOR INJECTION WHEN SECURITY WAS CALLED. SHE ALSO ASKED FOR SOMETHING TO HELP HER SLEEP. ADMINISTERED PRN TINIEN.
--- NOTE | 2021-06-17 23:00 | NUR ---
MS RN NOTES PATIENT WOKE UP AND STARTED SCREAMING AGAIN, ASKING FOR HER MORPHINE SULFATE PRN. ADVISED THAT IT IS NOT DUE YET. OFFERED TO TURN ON TV TO HELP HER RELAX, SHE REFUSED.
--- NOTE | 2021-06-18 01:00 | NUR ---
MS RN NOTES GARNETT MACHINE OPERATOR REPORTED SMELLING SMOKE FROM PATIENT'S ROOM. WE CHECKED THE ROOM AND WE FOUND 2 LIGHTERS AND A METAL PIPE. EDUCATED PATIENT THAT SHE CAN'T SMOKE IN THE HOSPITAL PER PROTOCOL AND OXYGEN USE BY OTHER PATIENTS. WE CONFISCATED THE LIGHTERS AND METAL PIPE, PLACED IN A BAG WITH PATIENT'S NAME AND SECURED IN NURSE'S STATION.
--- NOTE | 2021-06-18 02:00 | NUR ---
MS RN NOTES PATIENT CONTINUES TO SCREAM AND NON-COMPLIANT. REINFORCED THAT SHE NEEDS TO CALM DOWN AND STOP SCREAMING. SHE KEEPS ASKING FOR APPLE JUICE, STAFF REFUSED. SHE THEN WANTS TO GO AMA. EXPLAINED RISKS AND BENEFITS, VERBALIZED THAT SHE ALREADY DID IT YESTERDAY. ALSO, SHE IS ASKING FOR APPLE JUICE IN EXCHANGE OF AMA. EXPLAINED WE CAN'T DO THAT PER MD ORDER AND IT IS FOR HER SAFETY. PATIENT SIGNED AMA FORM, HOMELESS WAIVER FORM AND BELONGINGS FORM.
--- NOTE | 2021-06-18 04:00 | NUR ---
MS CORRECTIONAL MANAGER NOTES PATIENT LYING IN BED AWAKE, AGITATED AND SCREAMING. A/O X4. NO SOB OR NOTED. NO C/O PAIN AT THIS TIME. NON-COMPLIANT, SIGNED AMA FORM. INSTRUCTED TO WAIT FOR HER TRANSPORTATION TO ARRIVE BUT STILL WANTS TO GO DOWNSTAIRS ALREADY. ALL BELONGINGS ACCOUNTED FOR. PER SECURITY, PATIENT LEFT THE BUILDING ALONE.
== END 2021-06-18 04:00 | disposition left against medical advice (07) | DRG 720 ==
LOC: ER 00:04 → TRANSITION 10:30 → MED 16:03
PROVIDERS: ADMIT Family Medicine; ATTEND Family Medicine
DX: A41.9 Sepsis, unspecified organism (principal); N17.0 Acute kidney failure with tubular necrosis; K55.9 Vascular disorder of intestine, unspecified; K56.609 Unspecified intestinal obstruction, unspecified as to partial versus complete obstruction; E43 Unspecified severe protein-calorie malnutrition; E87.2 Acidosis; R64 Cachexia; Z20.822 Contact with and (suspected) exposure to COVID-19; Z98.84 Bariatric surgery status; D64.9 Anemia, unspecified; E87.1 Hypo-osmolality and hyponatremia; E86.1 Hypovolemia; D75.839 Thrombocytosis, unspecified; Z59.00 Homelessness unspecified; Z53.29 Procedure and treatment not carried out because of patient's decision for other reasons; F11.10 Opioid abuse, uncomplicated; E88.09 Other disorders of plasma-protein metabolism, not elsewhere classified
CPT/HCPCS: 36415; 71045-TC; 80048-TC; 80076-TC; 81001; 83690-TC; 84703-TC; 85025-TC; 87081-TC; 87086-TC; C9803; G0378; J2270; J2405; J3490; J7030; J7120